=== PATIENT | male | born 1995 | race Caucasian/White ===

== ENCOUNTER 2021-06-05 22:28 | Emergency (ER) | payer BC ==
[2021-06-05] MEDS ORDERED: ARZOL Silver Nitrate Applicator TP ONE ×2 (22:53→23:56)
[2021-06-05] MEDS ORDERED: Adacel Vial IM ONE ×2 (23:02→23:11)
--- NOTE | 2021-06-05 23:08 | ERPHSYRPT ---
- History of Present Illness Source: patient, other () Patient Subjective Stated Complaint: pt states he cut the end of his finger with a veggie slicer Triage Nursing Assessment: pt states he cut the end of his finger with a veggie slicer. pt alert and oriented, answers questions approp. pt mbulatory with steady gait noted. respirations nonlabored with lungs cta. tip of 5th digit, rt handwith 1x1 cm open area. mild active bleeding noted. Physician History: Mandolin vs L 5th digit tip before arrival. Pt needs Tdap. Pt R handed and denies other/previous injury. Occurred: just prior to arrival Method of Injury: incised Quality: constant Severity of Pain-Max: mild Severity of Pain-Current: mild Extremities Pain Location: 5th finger: right Modifying Factors: Improves With: other Associated Symptoms: none Allergies/Adverse Reactions: No Known Drug Allergies Allergy (Verified 06/05/21 23:10) Hx Tetanus, Diphtheria Vaccination/Date Given: No (unsure) Hx Influenza Vaccination/Date Given: No Hx Pneumococcal Vaccination/Date Given: No Immunizations Up to Date: No Travel Risk - International Travel Have you traveled outside of the country in past 3 weeks: No - Coronavirus Screening Are you exhibiting any of the following symptoms?: No Close contact with a COVID-19 positive Pt in past 14-21 Days: No - Vaccine Status Have you recieved a Covid-19 vaccination: No - Review of Systems Constitutional: No Symptoms Eyes: No Symptoms Ears, Nose, & Throat: No Symptoms Respiratory: No Symptoms Cardiac: No Symptoms Abdominal/Gastrointestinal: No Symptoms Genitourinary Symptoms: No Symptoms Skin: No Symptoms Neurological: No Symptoms Psychological: No Symptoms Endocrine: No Symptoms Hematologic/Lymphatic: No Symptoms Immunological/Allergic: No Symptoms - Past Medical History Pertinent Past Medical History: Yes Cardiac History: Hypertension - Past Surgical History Past Surgical History: Yes Other Surgical History: sinus surgery as a child - Social History Smoking Status: Never smoker Exposure to second hand smoke: No Drug Use: none Patient Lives Alone: No Significant Family History: no pertinent family hx - Nursing Vital Signs Nursing Vital Signs: Initial Vital Signs Pulse Rate 85 06/05/21 22:34 Respiratory Rate 18 06/05/21 22:34 Blood Pressure 140/104 06/05/21 22:34 O2 Sat by Pulse Oximetry 100 06/05/21 22:34 Pain Scale Pain Intensity 2 Hypertensive - Physical Exam General Appearance: no apparent distress Eyes, Ears, Nose, Throat Exam: normal ENT inspection Neck Exam: normal inspection Cardiovascular/Respiratory Exam: normal breath sounds, regular rate/rhythm Abdominal Exam: non-tender Back Exam: normal inspection Hand Exam: soft tissue tenderness (Distal tip L 5th digit avulsed) Neuro/Tendon Exam: normal sensation, normal motor functions, normal tendon functions, responds to pain, no evidence tendon injury, No motor deficit, No sensory deficit Mental Status Exam: alert, oriented x 3, cooperative Skin Exam: normal color, warm, dry SpO2 Interpretation: normal SpO2: 100 O2 Delivery: Room Air - Course Nursing assessment & vital signs reviewed: Yes Ordered Tests: Active Orders 24 hr Category Date Time Status Wound Care STAT Care 06/05/21 23:55 Completed Medication Summary Discontinued Medications Generic Name Dose Route Start Last Admin Trade Name Freq PRN Reason Stop Dose Admin Diphtheria/Tetanus/Acell Pertussis 0.5 ml 06/05/21 23:02 06/05/21 23:13 Adacel Vial IM 06/05/21 23:03 0.5 ml .ONCE ONE Administration Diphtheria/Tetanus/Acell Pertussis Confirm 06/05/21 23:11 Adacel Vial Administered 06/05/21 23:12 Dose 0.5 ml IM .STK-MED ONE Silver Nitrate Confirm 06/05/21 22:53 Arzol Silver Nitrate Applicator Administered 06/05/21 22:54 Dose 10 pkt TP .STK-MED ONE Silver Nitrate 1 pkt 06/05/21 23:56 06/05/21 22:55 Arzol Silver Nitrate Applicator TP 06/05/21 23:57 1 pkt STAT ONE Administration - Progress Progress: improved Progress Note: 06/05/21 23:07 L 5th digit superficial distal tip avulsion/Cleansed w Hibiclens/Hemostasis w AgNO4/Tdap/No comps Counseled pt/family regarding: diagnosis, need for follow-up - Departure Departure Disposition: Home Clinical Impression: Avulsion, finger tip Condition: Stable Critical Care Time: No Referrals: DOCTOR,NO FAMILY [Primary Care Provider] - Instructions: Wound Care (DC) Additional Instructions: Keep finger tip dry for 24 hours, then wash 1-2 times a day with soap/water Watch for signs of infection-redness/pain/pus/temperature greater than 100.5
[2021-06-06 00:30] VITALS: BP 134/89; PULSE 82
[2021-06-06 01:41] VITALS: O2SAT 100
== END 2021-06-05 23:34 | disposition home or self-care (01) ==
LOC: ED 22:28
DX: S61.306A Unspecified open wound of right little finger with damage to nail, initial encounter (principal); W45.8XXA Other foreign body or object entering through skin, initial encounter; W22.8XXA Striking against or struck by other objects, initial encounter; Y93.G1 Activity, food preparation and clean up; Y92.89 Other specified places as the place of occurrence of the external cause; Y99.8 Other external cause status
CPT/HCPCS: 90471; 90715; 99283; A9270-GY